=== PATIENT | female | born 1960 | race Caucasian/White ===

== ENCOUNTER 2018-02-10 09:53 | Emergency (ER) | payer BC ==
[~2018-02-10] VITALS: Ht 160 cm; Wt 71.2 kg
[2018-02-10 10:37] LABS: BASOPHIL % 0.4 % (0-2); PLATELET COUNT 188 x10^3mcL (130-400); RED CELL DISTRIBUTION WIDTH 13.3 % (11.5-14.5)
[2018-02-10 10:44] LABS: CALCIUM 9.7 mg/dL (8.5-10.1); CARBON DIOXIDE 24.6 mmol/L (21-32); CHLORIDE SERUM 102 mmol/L (98-107); CREATININE SERUM 0.9 mg/dL (0.6-1.0); GFR1 > 60 mL/min; GLUCOSE SERUM 115 mg/dL (74-106); POTASSIUM SERUM 4.3 mmol/L (3.5-5.1); SODIUM SERUM 138 mmol/L (136-145)
[2018-02-10 10:49] LABS: ALKALINE PHOSPHATASE 86 U/L (46-116); ALT/SGPT 107 U/L (14-59); AST/SGOT 89 U/L (15-37); BILIRUBIN TOTAL 0.7 mg/dL (0.20-1.00); TOTAL PROTEIN, SERUM 8.3 g/dL (6.4-8.2)
[2018-02-10 12:39] VITALS: BP 122/76
== END 2018-02-10 12:39 | disposition home or self-care (01) ==
LOC: ED 09:53
PROVIDERS: Emergency Medicine
DX: R07.89 Other chest pain (principal); M54.40 Lumbago with sciatica, unspecified side; Z85.3 Personal history of malignant neoplasm of breast
CPT/HCPCS: 36415; J1885; Q0092

== ENCOUNTER 2018-03-03 10:06 | Emergency (ER) | payer BC ==
[~2018-03-03] VITALS: Ht 160 cm; Wt 68.0 kg
[2018-03-03 10:14] VITALS: Ht 160 cm; Wt 68.0 kg
[2018-03-03 10:37] LABS: BASOPHIL % 0.2 % (0-2); PLATELET COUNT 176 x10^3mcL (130-400); RED CELL DISTRIBUTION WIDTH 13.1 % (11.5-14.5)
[2018-03-03 11:09] LABS: CALCIUM 9.6 mg/dL (8.5-10.1); CHLORIDE SERUM 91 mmol/L (98-107); CREATININE SERUM 0.7 mg/dL (0.6-1.0); GFR1 > 60 mL/min; GLUCOSE SERUM 155 mg/dL (74-106); POTASSIUM SERUM 3.3 mmol/L (3.5-5.1); SODIUM SERUM 127 mmol/L (136-145)
[2018-03-03 11:15] LABS: ALKALINE PHOSPHATASE 89 U/L (46-116); ALT/SGPT 166 U/L (14-59); AST/SGOT 237 U/L (15-37); BILIRUBIN TOTAL 1.3 mg/dL (0.20-1.00); TOTAL PROTEIN, SERUM 7.9 g/dL (6.4-8.2)
[2018-03-03 13:12] VITALS: BP 149/99
== END 2018-03-03 13:00 | disposition home or self-care (01) ==
LOC: ED 10:06
PROVIDERS: Emergency Medicine
DX: E87.1 Hypo-osmolality and hyponatremia (principal); R74.0 Nonspecific elevation of levels of transaminase and lactic acid dehydrogenase [LDH]; F41.9 Anxiety disorder, unspecified; R00.2 Palpitations; I10 Essential (primary) hypertension; Z85.3 Personal history of malignant neoplasm of breast
CPT/HCPCS: J7030; Q0092

== ENCOUNTER 2019-01-07 10:09 | Emergency (ER) | payer BC ==
[~2019-01-07] VITALS: Ht 170.2 cm; Wt 75.7 kg
[2019-01-07 10:15] VITALS: BP 143/93; Ht 170.2 cm; Wt 75.7 kg
== END 2019-01-07 11:21 | disposition home or self-care (01) ==
LOC: ED 10:09
DX: L30.8 Other specified dermatitis (principal); I10 Essential (primary) hypertension; Z85.3 Personal history of malignant neoplasm of breast

== ENCOUNTER 2019-01-10 05:54 | Emergency (ER) | payer BC ==
[~2019-01-10] VITALS: Ht 162.6 cm; Wt 76.7 kg
[2019-01-10 06:03] VITALS: Ht 162.6 cm; Wt 76.7 kg
[2019-01-10 06:47] LABS: microscopic required? NO
[2019-01-10 07:01] LABS: BASOPHIL % 0.5 % (0-2); RED CELL DISTRIBUTION WIDTH 13.5 % (11.5-14.5)
[2019-01-10 07:11] LABS: CALCIUM 8.6 mg/dL (8.5-10.1); CHLORIDE SERUM 97 mmol/L (98-107); CREATININE SERUM 0.7 mg/dL (0.6-1.0); GFR1 > 60 mL/min; GLUCOSE SERUM 334 mg/dL (74-106); POTASSIUM SERUM 3.7 mmol/L (3.5-5.1); SODIUM SERUM 135 mmol/L (136-145)
[2019-01-10 07:16] LABS: ALBUMIN 3.7 g/dL (3.4-5.0); ALKALINE PHOSPHATASE 110 U/L (46-116); ALT/SGPT 225 U/L (14-59); AST/SGOT 191 U/L (15-37); BILIRUBIN TOTAL 0.47 mg/dL (0.20-1.00); PLATELET COUNT 122 x10^3mcL (130-400); TOTAL PROTEIN, SERUM 7.7 g/dL (6.4-8.2)
[2019-01-10 07:39] LABS: UA SPECIFIC GRAVITY 1.025 (1.005-1.035); urine erythrocyte NEGATIVE (NEGATIVE)
[2019-01-10 11:30] VITALS: BP 121/52
== END 2019-01-10 11:30 | disposition home or self-care (01) ==
LOC: ED 05:54
PROVIDERS: Emergency Medicine
DX: R10.30 Lower abdominal pain, unspecified (principal); B02.9 Zoster without complications; I10 Essential (primary) hypertension; Z85.828 Personal history of other malignant neoplasm of skin
CPT/HCPCS: 82962; J1885; J2270; J2405